=== PATIENT | female | born 1945 | race Asian ===

== ENCOUNTER 2016-11-05 03:16 | Emergency (ER) | payer MEDICARE, OTHER ==
[~2016-11-05] VITALS: Ht 160 cm; Wt 66.5 kg
[~2016-11-05 03:16] MED LIST: AMLO-145 PO; ASPI-650 PO; LOSA50TA2 PO; METF500T4 PO; METO-53 PO; SIMV5TAB50 PO
[2016-11-05 03:19] VITALS: Ht 160 cm; Wt 66.5 kg
[2016-11-05] MEDS ORDERED: ONDANSETRON 4 MG INJ IV STA (03:51)
[2016-11-05] MEDS ORDERED: SOD CHLORIDE 0.9% 1,000 ML IV STA (03:51)
[2016-11-05] MEDS ORDERED: MECLIZINE 12.5 MG TAB PO ONE (04:00)
--- NOTE | 2016-11-05 04:44 | RADRPT ---
PROCEDURE: CT brain without contrast. CLINICAL INDICATION: Headache. TECHNIQUE: CT of the brain was performed using a [employer] 64-slice VCT scann er. Contiguous axial images using 5-mm slice thickness were obtained from the skull base to the loly mathew without contrast. Coronal and sagittal reformatted images were obtained. Images were reviewed on a PACS workstation. Exam CTD/vol = 45.01 mGy. Total exam DLP = 720.23 mGy-cm. COMPARISON: None. FINDINGS: The ventricles and cortical sulci are within normal limits for patient's age. There are no areas of abnormal attenuation within the brain parenchyma. There is no mass effect or midline shift. There is no intracranial hemorrhage or abnormal extra-axial collection. There are atherosclerotic calcifi cations within bilateral distal internal carotid arteries. The calvarium is intact. There is no evidence of fracture. Visualized paranasal sinuses and mastoi d air cells are clear. IMPRESSION: No acute intracranial abnormality identified. Cerebral atherosclerosis. .Jordan Vásquez MD, Date Time Electronically viewed and signed by .Jordan Vásquez MD, MD on 11/05/2016 04:44 .T/
[2016-11-05 05:04] LABS: ADD UMIC YES; URINE BILIRUBIN (Dip) NEGATIVE (NEGATIVE); URINE BLOOD (Dip) 3+ (NEGATIVE); URINE COLOR LT. YELLOW (YELLOW); URINE GLUCOSE (Dip) NEGATIVE (NEGATIVE); URINE KETONES (Dip) NEGATIVE (NEGATIVE); URINE LEUKOCYTE ESTERASE (Dip) NEGATIVE (NEGATIVE); URINE NITRITE (Dip) NEGATIVE (NEGATIVE); URINE TOTAL PROTEIN (Dip) 2+ (NEGATIVE); URINE UROBILINOGEN (Dip) 0.2 E.U./dL (0.1-1.0)
[2016-11-05 05:09] LABS: HEMATOCRIT 35.6 % (37.0-47.0); MEAN CORPUSCULAR HEMOGLOBIN 30.6 pg (29.0-33.0); MEAN CORPUSCULAR HGB CONC 33.8 g/dl (32.0-37.0); MEAN CORPUSCULAR VOLUME 90.6 fl (82.0-101.0); MEAN PLATELET VOLUME 10.4 fl (7.4-10.4); RED BLOOD COUNT 3.92 10^6/ul (4.20-5.40); RED CELL DISTRIBUTION WIDTH 13.2 % (11.5-14.5)
[2016-11-05 05:14] LABS: ALBUMIN 4.2 g/dl (3.3-4.9); CHLORIDE 106 mmol/L (97-110); POTASSIUM 3.7 mmol/L (3.5-5.1); SODIUM 147 mmol/L (135-144)
[2016-11-05 05:16] LABS: BILIRUBIN,INDIRECT 0.2 mg/dl (0-1.1); BILIRUBIN,TOTAL 0.2 mg/dl (0.2-1.3); CREATININE 0.99 mg/dl (0.44-1.00)
[2016-11-05 05:17] LABS: ALANINE AMINOTRANSFERASE 24 IU/L (13-69); ALBUMIN/GLOBULIN RATIO 1.16; ALKALINE PHOSPHATASE 60 IU/L (42-121); ANION GAP 18 (8-16); ASPARTATE AMINO TRANSFERASE 22 IU/L (15-46); BLOOD UREA NITROGEN 18 mg/dl (7-20); CALCIUM 9.4 mg/dl (8.4-10.2); CARBON DIOXIDE 27 mmol/L (21-31); GLUCOSE 155 mg/dl (70-220); TOTAL PROTEIN 7.8 g/dl (6.1-8.1)
[2016-11-05 05:20] LABS: URINE RBCS >50 /HPF (0)
[2016-11-05 05:21] LABS: BACTERIA,URINE MODERATE; SQUAMOUS EPITHELIAL CELL,UR FEW
[2016-11-05 05:25] LABS: CONDITION 1; LH ANALYZER COMMENTS 1; SUSPECT 1; UNCORRECTED WBC 19.3 10^3/ul (4.8-10.8); WHITE BLOOD COUNT 8.7 10^3/ul (4.8-10.8)
[2016-11-05] MEDS ORDERED: MECL12.574 PO (05:35)
[2016-11-05 05:55] LABS: TROPONIN-I < 0.012 ng/ml (0.00-0.12)
--- NOTE | 2016-11-05 05:55 | ERD ---
ER Documentation Chief Complaint Date/Time DATE: 11/05/16 TIME: 05:52 Chief Complaint DIZZINESS +N/V X2 HRS HPI Patient is a 70-year-old female with hypertension and diabetes who presents with dizziness. She said that it started at 2 AM. It was getting worse. She also had a cough. She feels like the room is spinning. She has no fevers. She has no headache. She tried Tylenol. She has no pain. She did have vomiting. Upon review of old medical records the patient one previous visit in 2010 for vertigo. She does have a primary doctor. ROS All systems reviewed and are negative except as per history of present illness. Medications Home Meds Active Scripts Meclizine Hcl* (Antivert*) 12.5 Mg Tab, 25 MG PO Q6H Y for DIZZINESS, #20 TAB Prov:SP LAMA MD 11/05/16 Reported Medications Metoprolol (Lopressor) 50 Mg Tablet, 50 MG PO DAILY 05/25/13 Losartan Potassium* (Cozaar*) 50 Mg Tablet, 1 PO BID 11/01/11 Simvastatin* (Simvastatin*) 5 Mg Tablet, 1 PO HS 11/01/11 Amlodipine Besylate* (Amlodipine Besylate*) 5 Mg Tablet, 1 PO DAILY 11/01/11 Aspirin (Aspirin) 81 Mg Tablet, 1 PO DAILY 11/01/11 Metformin* (Glucophage*) 500 Mg Tab, 1 PO DAILY 11/01/11 Allergies Allergies: Coded Allergies: No Known Drug Allergies (Verified Allergy, 05/25/13) PMhx/Soc History of Surgery: Yes (APPENDECTOMY) Anesthesia Reaction: No Hx Neurological Disorder: No Hx Respiratory Disorders: No Hx Cardiac Disorders: No Hx Psychiatric Problems: No Hx Miscellaneous Medical Probl: No Hx Alcohol Use: No Hx Substance Use: No Hx Tobacco Use: No Smoking Status: Never smoker FmHx Family History: No diabetes Physical Exam Vitals Vital Signs Date Time Temp Pulse Resp B/P Pulse Ox O2 Delivery O2 Flow Rate FiO2 11/05/16 03:53 77 17 130/77 95 Room Air 11/05/16 03:19 98.0 91 18 125/80 94 Physical Exam Const: Mild distress secondary to dizziness Head: Atraumatic Eyes: Normal Conjunctiva ENT: Normal External Ears, Nose and Mouth. Neck: Full range of motion..~ No meningismus. Resp: Clear to auscultation bilaterally Cardio: Regular rate and rhythm, no murmurs Abd: Soft, non tender, non distended. Normal bowel sounds Skin: No petechiae or rashes Back: No midline or flank tenderness Ext: No cyanosis, or edema Neur: Awake and alert, cranial nerves II through XII are intact, strength is 5 out of 5 in all 4 extremities, no pronator drift, no slurred speech Psych: Normal Mood and Affect Result Diagram: 11/05/16 0418 11/05/168 Results 24 hrs Laboratory Tests Test 11/05/16 04:18 11/05/16 04:32 Alanine Aminotransferase (ALT/SGPT) 24IU/L Albumin 4.2g/dl Albumin/Globulin Ratio 1.16 Alkaline Phosphatase 60IU/L Anion Gap 18 Aspartate Amino Transf (AST/SGOT) 22IU/L Basophils # 10^3/ul Blood Morphology Comment Blood Urea Nitrogen 18mg/dl Calcium Level 9.4mg/dl Carbon Dioxide Level 27mmol/L Chloride Level 106mmol/L Creatinine 0.99mg/dl Direct Bilirubin 0.00mg/dl Eosinophils # 10^3/ul Globulin 3.60g/dl Glucose Level 155mg/dl Hematocrit 35.6% Hemoglobin 12.0g/dl Indirect Bilirubin 0.2mg/dl Lipase 128U/L Lymphocytes # 10^3/ul Mean Corpuscular Hemoglobin 30.6pg Mean Corpuscular Hemoglobin Concent 33.8g/dl Mean Corpuscular Volume 90.6fl Mean Platelet Volume 10.4fl Monocytes # 10^3/ul Neutrophils # 10^3/ul Platelet Count Pending Potassium Level 3.7mmol/L Red Blood Count 3.9210^6/ul Red Cell Distribution Width 13.2% Sodium Level 147mmol/L Total Bilirubin 0.2mg/dl Total Protein 7.8g/dl Troponin I Pending White Blood Count 8.710^3/ul Urine Bacteria MODERATE Urine Bilirubin NEGATIVE Urine Clarity CLEAR Urine Color LT. YELLOW Urine Glucose NEGATIVE% Urine Granular Casts OCCASIONAL Urine Hemoglobin 3+ Urine Hyaline Casts FEW Urine Ketones NEGATIVE Urine Leukocyte Esterase NEGATIVE Urine Microscopic RBC >50/HPF Urine Microscopic WBC 2-5/HPF Urine Nitrite NEGATIVE Urine Specific [place] 1.020 Urine Squamous Epithelial Cells FEW Urine Total Protein 2+ Urine Urobilinogen 0.2 E.U./dL Urine pH 7.0 Current Medications Medications (Trade) Dose Ordered Sig/Alida Route PRN Reason Start Time Stop Time Status Last Admin Dose Admin Sodium Chloride (NS) 1,000 ml @ 1,000 mls/hr Q1H STAT IV 11/05/16 03:51 11/05/16 04:50 DC 11/05/16 04:43 Ondansetron HCl (Zofran Inj) 4 mg ONCE STAT IV 11/05/16 03:51 11/05/16 03:53 DC 11/05/16 04:42 Meclizine HCl (Antivert) 25 mg ONCE ONCE PO 11/05/16 04:00 11/05/16 04:01 DC 11/05/16 04:42 Procedures/MDM EKG read by me: Rate/Rhythm: Regular rate and rhythm at a rate of 81 Intervals: Normal Impression: No evidence of ischemia or arrhythmia CT head negative per radiology. Patient is a 70-year-old female with hypertension and diabetes who presents with dizziness. The patient is a CT head which was negative. EKG did not show any signs of ischemia or arrhythmia. Laboratory studies were normal. Troponin is pending at this time. If the troponin is negative I believe outpatient management is appropriate. I doubt stroke, intracranial hemorrhage, or intracranial mass. I believe this may be vertigo and the patient was given meclizine. The patient will be given a prescription for meclizine as well. The patient can follow-up with her primary doctor within 24-48 hours for reevaluation. She can return sooner for any worsening symptoms. Departure Diagnosis: Primary Impression: Dizziness Condition: Fair Patient Instructions: Dizziness, Unk Cause Referrals: Your doctor Additional Instructions: Call your primary care doctor TOMORROW for an appointment during the next 1-2 days.See the doctor sooner or return here if your condition worsens before your appointment time. SP LAMA MD Nov 05, 2016 05:55
[2016-11-05 05:59] VITALS: BP 114/79; PULSE 81; RESP 25
[2016-11-05 07:23] LABS: BASOPHIL # 0.1 10^3/ul (0.0-0.1); EOSINOPHILS # 0.3 10^3/ul (0.0-0.5); MONOCYTE # 0.7 10^3/ul (0.3-0.9); NEUTROPHIL # 6.4 10^3/ul (1.6-7.5); PLATELET ESTIMATE PLT APPEAR ADEQUATE
[2016-11-05 07:36] LABS: PLATELET COUNT 202 10^3/UL (140-440)
== END 2016-11-05 06:07 | disposition home or self-care (01) ==
LOC: E/R 03:16
DX: R42 Dizziness and giddiness (principal); R11.2 Nausea with vomiting, unspecified; E11.9 Type 2 diabetes mellitus without complications; I10 Essential (primary) hypertension; Z79.82 Long term (current) use of aspirin; Z79.84 Long term (current) use of oral hypoglycemic drugs
CPT/HCPCS: 70450; 80053; 81001; 83690; 84484; 85025; 93005; J2405; J7030; 36415; 81003; 96374

== ENCOUNTER 2018-11-25 15:32 | Emergency (ER) | payer MEDICARE, OTHER ==
[~2018-11-25] VITALS: Ht 160 cm; Wt 48.5 kg
[~2018-11-25 15:32] MED LIST changes: +MECL12.574 PO; +METF-849 PO; -METF500T4 PO; +SIMV5TAB14 PO; -SIMV5TAB50 PO
[2018-11-25 16:02] VITALS: Ht 160 cm; Wt 48.5 kg
--- NOTE | 2018-11-25 20:07 | ERD ---
ER Documentation Chief Complaint Chief Complaint cp with sob x 1 day HPI 72-year-old female with a history of hypertension and diabetes brought in by her family with complaints of high blood pressure with redness in her left eye. Per the triage note, the patient had chest pain or shortness of breath today, however the patient denies this. She states that she was at her [facility] today which she attends every day during the week. They always take her vital signs there. Today her blood pressure was higher than usual, despite taking all of her medications as she usually does. Her blood pressure usually runs with a systolic in the 120s, however today it was up to 170. This continued throughout the day. They called PCP, who referred them to the ER. The patient is denying any associated headache, vision disturbance, nausea, vomiting, chest pain, shortness of breath, dizziness, focal weakness or numbness. She did notice that the white part of her left eye was red, but this is not causing her any pain or blurry vision. ROS All systems reviewed and are negative except as per history of present illness. Medications Home Meds Reported Medications Calcium Carbonate/Vitamin D3 (OYSTERCAL-D 500 MG-400 UNIT TB) 1 Each Tablet, 1 EACH PO BID, TAB 11/25/18 Glycerin-Propylene Glycol (Lubricant Eye Drops) 15 Ml Drops, 2 DROP BOTH EYES QID, EA 11/25/18 Diphenhydramine Hcl (Banophen) 25 Mg Tablet, 25 MG PO QHS PRN for PRN, TAB TAKE 1-2 TAB 11/25/18 Simvastatin* (Zocor*) 10 Mg Tablet, 10 MG PO QHS, #30 TAB 11/25/18 Metoprolol Succinate* (Toprol XL*) 50 Mg Tab.er.24h, 50 MG PO DAILY, #30 TAB 11/25/18 Metformin Hcl* (Metformin Hcl*) 500 Mg Tablet, 500 MG PO WITH BREAKFAST, #30 TAB 11/25/18 Losartan Potassium* (Losartan Potassium*) 50 Mg Tablet, 50 MG PO BID, TAB 11/25/18 Aspirin* (Aspirin* EC) 81 Mg Tablet.dr, 81 MG PO DAILY, TAB 11/25/18 Amlodipine Besylate* (Amlodipine Besylate*) 10 Mg Tablet, 10 MG PO DAILY, #30 TAB 11/25/18 Discontinued Reported Medications Metoprolol (Lopressor) 50 Mg Tablet, 50 MG PO DAILY 05/25/13 Losartan Potassium* (Cozaar*) 50 Mg Tablet, 1 PO BID 11/01/11 Simvastatin* (Simvastatin*) 5 Mg Tablet, 1 PO HS 11/01/11 Amlodipine Besylate* (Amlodipine Besylate*) 5 Mg Tablet, 1 PO DAILY 11/01/11 Aspirin (Aspirin) 81 Mg Tablet, 1 PO DAILY 11/01/11 Metformin* (Glucophage*) 500 Mg Tab, 1 PO DAILY 11/01/11 Discontinued Scripts Meclizine Hcl* (Antivert*) 12.5 Mg Tab, 25 MG PO Q6H PRN for DIZZINESS, #20 TAB Prov:SP LAMA MD 11/05/16 Allergies Allergies: Coded Allergies: No Known Drug Allergies (Verified Allergy, Unknown, 11/25/18) PMhx/Soc History of Surgery: Yes (APPENDECTOMY) Anesthesia Reaction: No Hx Neurological Disorder: No Hx Respiratory Disorders: No Hx Cardiac Disorders: Yes (HTN, high cholesterol) Hx Psychiatric Problems: No Hx Miscellaneous Medical Probl: Yes (diabetes) Hx Alcohol Use: No Hx Substance Use: No Hx Tobacco Use: No FmHx Family History: No coronary disease Physical Exam Vitals Vital Signs Date Temp Pulse Resp B/P (MAP) Pulse Ox O2 O2 Flow FiO2 Time Delivery Rate 11/25/18 68 19 143/85 98 Room Air 21:20 (104) 11/25/18 72 16 156/82 98 Room Air 19:57 (106) 11/25/18 168/91 17:20 (116) 11/25/18 99.7 128 16 136/81 97 16:02 (99) Physical Exam Const: No acute distress, well-appearing, nontoxic Head: Atraumatic Eyes: Left subconjunctival hemorrhage at 6:00. No hyphema. PERRLA, EOMI ENT: Normal External Ears, Nose and Mouth. Neck: Full range of motion. No meningismus. Resp: Clear to auscultation bilaterally Cardio: Regular rate and rhythm, no murmurs. 2+ distal pulses in all 4 extremities Abd: Soft, non tender, non distended. Normal bowel sounds Skin: No petechiae or rashes Back: No midline or flank tenderness Ext: No cyanosis, or edema Neur: Awake and alert, normal speech, cranial nerves intact, strength and sensations intact in all 4 extremities Psych: Normal Mood and Affect Result Diagram: 11/25/18200011/25/182000 Results 24 hrs Laboratory Tests Test 11/25/18 20:01 White Blood Count 7.6 10^3/ul Red Blood Count 4.20 10^6/ul Hemoglobin 12.6 g/dl Hematocrit 38.0 % Mean Corpuscular Volume 90.5 fl Mean Corpuscular Hemoglobin 30.0 pg Mean Corpuscular Hemoglobin Concent 33.2 g/dl Red Cell Distribution Width 12.4 % Platelet Count 219 10^3/UL Mean Platelet Volume 11.5 fl Immature Granulocytes % 0.300 % Neutrophils % 54.1 % Lymphocytes % 34.3 % Monocytes % 8.9 % Eosinophils % 1.6 % Basophils % 0.8 % Nucleated Red Blood Cells % 0.0 /100WBC Immature Granulocytes # 0.020 10^3/ul Neutrophils # 4.1 10^3/ul Lymphocytes # 2.6 10^3/ul Monocytes # 0.7 10^3/ul Eosinophils # 0.1 10^3/ul Basophils # 0.1 10^3/ul Nucleated Red Blood Cells # 0.0 10^3/ul Urine Color YELLOW Urine Clarity CLEAR Urine pH 5.0 Urine Specific [place] 1.012 Urine Ketones NEGATIVE mg/dL Urine Nitrite NEGATIVE mg/dL Urine Bilirubin NEGATIVE mg/dL Urine Urobilinogen NEGATIVE mg/dL Urine Leukocyte Esterase 1+ Karen/ul Urine Microscopic RBC 65 /HPF Urine Microscopic WBC 4 /HPF Urine Hemoglobin 3+ mg/dL Urine Glucose NEGATIVE mg/dL Urine Total Protein 2+ mg/dl Sodium Level 142 mmol/L Potassium Level 3.9 mmol/L Chloride Level 108 mmol/L Carbon Dioxide Level 25 mmol/L Anion Gap 9 Blood Urea Nitrogen 17 mg/dl Creatinine 0.92 mg/dl Est Glomerular Filtrat Rate mL/min mL/min Glucose Level 102 mg/dl Calcium Level 10.8 mg/dl Procedures/MDM EMERGENT LABS AND DIAGNOSTIC STUDIES: Lab Results above were reviewed and interpreted by me. CBC: no anemia or evidence of infection CMP: Mild hypercalcemia. No evidence of severe electrolyte abnormality, renal failure, hypoglycemia UA: 1+ leuk esterase, microscopic hematuria and proteinuria. Patient asymptomatic 12-lead EKG was interpreted by Rick Medina MD: Normal Sinus Rhythm Normal axis Normal intervals No acute ST or T wave changes suggestive of acute ischemia or STEMI. Initial Nursing notes reviewed. Previous Medical Records requested via the Electronic Health Record. EMERGENCY DEPARTMENT COURSE / MEDICAL DECISION MAKING: Patient is presenting with asymptomatic hypertension and left subconjunctival hemorrhage, likely secondary to her hypertension. Here her blood pressure has remained stable. I have a low suspicion for ACS, or hypertensive emergency. Labs did not indicate any significant abnormalities. Patient was reassured and advised to follow-up with her primary care doctor for continued blood pressure monitoring and management. Follow-up was recommended for the next 2 days. Strict return precautions were discussed. Departure Diagnosis: Primary Impression: Asymptomatic hypertensive urgency Additional Impression: Subconjunctival hemorrhage of left eye Condition: Stable APOORVA MEDINA MD Nov 25, 2018 20:07
[2018-11-25] MEDS ORDERED: AMLO-147 PO (21:03)
[2018-11-25] MEDS ORDERED: ASPI-817 PO (21:03)
[2018-11-25] MEDS ORDERED: LOSA50TA14 PO (21:04)
[2018-11-25] MEDS ORDERED: METO-319 PO (21:04)
[2018-11-25] MEDS ORDERED: METF500T24 PO (21:04)
[2018-11-25] MEDS ORDERED: SIMV10TA PO (21:05)
[2018-11-25] MEDS ORDERED: DIPH25TA27 PO (21:06)
[2018-11-25] MEDS ORDERED: GLYC15DR2 BOTH EYES (21:08)
[2018-11-25] MEDS ORDERED: CALC-634 PO (21:08)
[2018-11-25 21:20] VITALS: BP 143/85; PULSE 68; RESP 19
== END 2018-11-25 21:37 | disposition home or self-care (01) ==
LOC: E/R 15:32
DX: I16.0 Hypertensive urgency (principal); H11.32 Conjunctival hemorrhage, left eye; I10 Essential (primary) hypertension; E11.9 Type 2 diabetes mellitus without complications; Z79.82 Long term (current) use of aspirin; Z79.84 Long term (current) use of oral hypoglycemic drugs
CPT/HCPCS: 36415; 80048; 81001; 85025; 93005